=== PATIENT | male | born 1985 | race Caucasian/White ===

== ENCOUNTER 2020-07-18 14:24 | Observation (INO) | payer OTHER ==
[~2020-07-18] VITALS: Ht 188 cm; Wt 104.5 kg
[2020-07-18 15:03] LABS: COLLECTION METHOD CLEAN CATCH
[2020-07-18 15:07] LABS: BASO % 0.4 % (0.0-2.0); EOS # 0.1 (0.0-0.7); EOS % 0.5 % (0-4.0); GRAN # 7.7 (1.4-6.5); GRAN % 74.3 % (42.2-75.2); HEMATOCRIT 39.4 % (42.0-52.0); HEMOGLOBIN 13.5 g/dl (13.5-18.0); LYMPH % 19.1 % (20.0-51.0); MEAN CELL VOLUME 80 fl (80.0-100.0); MEAN CORPUSCULAR HEMOGLOBIN 28 pg (27.0-31.0); MEAN CORPUSCULAR HGB CONC 34 g/dl (33.0-37.0); MONO # 0.6 (0.1-0.6); MONO % 5.3 % (1.7-9.3); PLATELET COUNT 202 K/mm3 (130-400); REDCELL DISTRIBUTION WIDTH-CV 12.7 % (11.5-14.5)
[2020-07-18 15:10] LABS: PH 6 (5-8); SQUAMOUS EPITHELIAL None Seen /hpf; URINE APPEARANCE Clear; URINE BACTERIA None Seen /hpf; URINE BILIRUBIN Negative (NEGATIVE); URINE BLOOD Negative (NEGATIVE); URINE COLOR Yellow; URINE GLUCOSE Negative (NEGATIVE); URINE KETONE Negative (NEGATIVE); URINE LEUKOCYTE ESTERASE Negative (NEGATIVE); URINE NITRATE Negative (NEGATIVE); URINE PROTEIN(semi-quant) Negative (NEGATIVE); URINE RBC 0-2 /hpf; URINE UROBILINOGEN Negative (NEGATIVE)
[2020-07-18 15:20] LABS: ALBUMIN 5.1 gm/dL (3.5-5.0); BILIRUBIN,TOTAL 1.1 mg/dL (0.0-1.0); CALCIUM 9.9 mg/dL (8.4-10.2); CREATININE, serum 0.8 (0.66-1.25); TOTAL PROTEIN 8.4 gm/dL (6.4-8.2)
--- NOTE | 2020-07-18 19:30 | NUR ---
RECEIVED REPORT FROM ER NURSE, MICHELLE REGARDING PATIENT, SENT TO SURGERY FROM ER, ANTICIPATE ADMIT TO ROOM 350 POST OP.
[2020-07-18 21:45] VITALS: BP 151/78; PULSE 77; TEMP 98.3
--- NOTE | 2020-07-18 21:45 | NUR ---
RECEIVED FROM PACU PATIENT VIA HOSPITAL BED. ORIENTED TO ROOM, PATIENT DENIES CHEST PAIN/SHORTNESS OF BREATH/NAUSEA. PATIENT DENIES ANY NEEDS AT THIS TIME.
[2020-07-18 22:45] VITALS: BP 144/77; PULSE 61; TEMP 98.8
[2020-07-18 23:25] VITALS: BP 139/72; PULSE 55; TEMP 98.8
[2020-07-18 23:50] VITALS: BP 137/72; PULSE 61; TEMP 99.1
[2020-07-19 00:49] VITALS: BP 135/65; PULSE 60; TEMP 98.8
[2020-07-19 01:11] VITALS: BP 151/78; PULSE 77; TEMP 98.3
[2020-07-19 02:16] VITALS: BP 132/60; PULSE 60; TEMP 98.7
[2020-07-19 03:40] VITALS: BP 126/66; PULSE 57; TEMP 97.8
[2020-07-19] MEDS ORDERED: ULTRAM 50MG TAB50 MG PO (07:52)
[2020-07-19 08:38] VITALS: BP 132/62; PULSE 68; TEMP 98
--- NOTE | 2020-07-19 10:07 | NUR ---
patient is discharging home, orders reviewed with him, instructed to keep incision sites clean and dry and to monitor for signs of infection, bathing restrictions discussed, instructed to call and schedule follow up with as ordered, script for Ultram sent to [facility] for him, IV removed, flu vaccine given prior to discharge, patient ambulatory and ELDER ASSISTANT escorted him out the door
== END 2020-07-19 10:09 | disposition home or self-care (01) ==
LOC: COL.ER 14:24 → SURG 16:11
PROVIDERS: Emergency Medicine; ADMIT Surgery
DX: K35.80 Unspecified acute appendicitis (principal); Z88.8 Allergy status to other drugs, medicaments and biological substances; E11.9 Type 2 diabetes mellitus without complications
CPT/HCPCS: G0008; G0378; J0690; J1100; J1885; J2405; J2543; J2704; J3010; J3475; J7030; Q9967